=== PATIENT | male | born 1975 | race Caucasian/White ===

== ENCOUNTER → 2024-05-06 12:47 | Outpatient (BNVA) | payer SELFPAY | PROVIDERS: Visit Provider Physician Assistant Medical ==

== ENCOUNTER 2025-05-09 08:17 | Outpatient (AMB) | payer BC, SELFPAY ==
--- NOTE | 2025-05-09 08:18 | MHC.OFFVIS ---
Intake Visit Reasons: 2 Month F/U Allergies No Known Allergies Allergy (Verified 05/03/25 12:16) Medication List - Last Reconciled 05/09/25 by Caesar Li MD insulin glargine U-300 conc (Benignoulisbeth SoloStar U-300 Insulin) 34 units subcut DAILY tizanidine 2 mg PO BEDTIME PRN 90 days topiramate 25 mg PO BID HPI Comments Details: 50 yo RH man with headaches. His problems started around 2021 when he started having headaches. In Oct, he developed a severe headache and had a CT brain done at [facility], which revealed a large right CP angle mass, a meningioma, causing mass effects to brainstem. He had surgical decompression in December in [facility]. His headaches disappeared after surgery but he developed CSF leak causing constant runny nose. This was treated another surgery in March of 2024. Apparently, he has gamma knife treatment as it was not completely removed. He said that pathology was benign. He was getting headache in the back of head, on both sides, a few times a day. He was going to have another MRI and has a follow up in [place] with his neurosurgeon. Ibuprufen was only thing that was helping. [facility] Medical History (Updated 05/09/25 @ 08:24 by Caesar Li MD) Meningioma Review of Systems Const Details: c/o Daily headaches Physical Exam Neuro Other: Mental Status: Alert and oriented to person, place, and time. Normal attention. Normal spontaneous speech, fluency, and comprehension. No obvious issues with mood and memory. Affect is appropriate. Cranial Nerves: CN II: Visual wiseman full to confrontation, visual acuity intact. CN III, IV, : Pupils equal, round, reactive to light and accommodation. Extraocular movements are normal. CN V: Facial sensation is normal. CN VII: Facial movements symmetrical. CN VIII: Hearing intact to bedside conversation is normal. CN IX, X: Palate elevates symmetrically. CN XI: Shoulder shrug and head turn symmetrical. CN XII: Tongue midline without atrophy or fasciculations. Motor: Bulk and tone normal in all extremities. No significant muscle weakness in arms and legs. No drift. Reflexes: Deep tendon reflexes 2+ and symmetric. Plantar response down-going bilaterally. Coordination: Cifxzl-im-ssie and qpwg-ap-fkwc testing normal. No dysmetria. Gait and Station: No obvious gait abnormality. No ataxia or instability. Extrapyramidal: Full facial expressions and blinking. No rigidity. Movements are appropriate with no tremor or abnormality. Speech: Normal; no dysarthria or tremor. Assessment & Plan Assessment & Plan (1) Chronic daily headache: Comment: Meds tried: Motrin, amitriptyline, gabapentin, tramadol, duloxetine CT brain WO at [facility] in Oct 2023: Large right CP angle mass with mass effect MRI brain WWO at [facility] in Oct 2023: Same lesion with enhancement Code(s): R51.9 - Headache, unspecified Category: Medical (2) Occipital neuralgia: Code(s): M54.81 - Occipital neuralgia Category: Medical Qualifiers: Laterality: bilateral Qualified Code(s): M54.81 - Occipital neuralgia Plan Impression: 50 years old man with chronic daily headache with features of occipital neuralgia. He has been using ibuprofen on regular basis, which is not a good option for him because of him being diabetic. In addition, regular use of ibuprofen can result in analgesic rebound headaches and he was educated about that. He had a right cerebellopontine angle mass, probably meningioma, resected in 2023. After that he developed a CSF leak which was treated with gamma knife. He said that sense that treatment, he was having these headaches. He was going to have another MRI of brain and has another appointment with his neurosurgeon in July. In the meantime he was educated about occipital neuralgia in its proper treatment. It response best to nerve block type of treatment. Rec: a. Topiramate 25mg bid b. Minimize use of Ibuprufen c. Consider injection treatment for occipital neuralgia Coding Level of Care Code Est Pt Level 5 (82745) Diagnoses Chronic daily headache R51.9 Bilateral occipital neuralgia M54.81 Laterality: bilateral
--- OUTSIDE RECORDS SUMMARY | 2025-05-09 08:35 | XMS_ITS | Clinical Summary ---
Author Organization [facility] Address [address] [facility] Tiffany And[address] [place] [address] Care Team Providers Care Php Consultant Name Role Phone Randell Gasca MD Primary Care Provider [phone] Allergies Active Allergy Reactions Criticality Noted Date Comments Gabapentin Angioedema High 08/17/2024 Medications atorvastatin (Lipitor) 20 mg tablet Take 20 mg by mouth at bedtime. 4 Active Semglee,insuli n glarg-yfgn,Pen 100 unit/mL (3 mL) insulin pen Inject 34 Units under the skin in the evening. 4 Active Trulicity 4.5 mg/0.5 mL pen injector Inject 0.25 mg under the skin 1 (one) time per week. On Saturdays AM 4 Active metFORMIN (Glucophage) 1,000 mg tablet Take 1,000 mg by mouth with breakfast and with evening meal. Do not crush, chew, or split. Active multivitamin with folic acid 400 mcg tablet tablet Take 1 tablet by mouth once daily. Active acetaminophen (Tylenol) 325 mg tabletIndicati ons:Cerebral meningioma (Multi-HCC) Take 2 tablets (650 mg) by mouth every 6 (six) hours as needed for pain 30 tablet 01/02/2024 9:10 AM EDT 4 Active lisinopril 10 mg tablet Take 10 mg by mouth once daily. Active omega-3 (Fish Oil) 300-1,000 mg capsule Take 1,000 mg by mouth once daily. Active zinc gluconate 50 mg tablet Take 50 mg by mouth once daily. Active diclofenac (Voltaren) 75 mg EC tablet Take 75 mg by mouth twice daily. Do not crush, chew, or split. Active FreeStyle glucose monitoring kit Test blood sugar 2 times daily 9 Active Dexcom G4 [place] office rental clerk (Dexcom G7 Well Cleaner) misc 1 Device by Does not apply route See Admin Instructions. Use daily with dexcom g 7 sensors 3 Active Dexcom G7 Sensor device See administration instructions. Change Sensor every 10 days Active ibuprofen 800 mg tablet Take 800 mg by mouth every 8 (eight) hours if needed. 4 Active Autolet lancing device Test blood sugar 2 times daily 3 Active pen needle, diabetic 32 gauge x /32 needle Use one daily with insulin. 4 Active gabapentin (Neurontin) 300 mg capsuleIndicat ions:Cerebral meningioma (Multi-HCC) Take 1 tablet twice a day for one week then increase to 1 tablet three times a day 90 capsule 1 4 Active amitriptyline (Elavil) 10 mg tabletIndicati ons:Meningioma (Multi-HCC) Take 3 tablets (30 mg) by mouth at bedtime. 90 tablet 5 Active amoxicillin (Amoxil) 250 mg capsule Take 250 mg by mouth every 8 (eight) hours. 4 Active DULoxetine (Cymbalta) [address] capsule Take 20 mg by mouth in the morning. 4 025 Active Toulisbeth SolRosa Mar U-300 Insulin 300 unit/mL (1.5 mL) injection Inject 34 Units under the skin once daily. Active tiZANidine (Zanaflex) 4 mg tablet Take 4 mg by mouth if needed at bedtime. Active topiramate (Topamax) 25 mg tablet Take 25 mg by mouth once daily. 5 Active traMADol (Ultram) 50 mg tablet Take 50 mg by mouth every 6 (six) hours if needed. 5 Active Active Problems Problem Noted Date Diagnosed Date Cerebrospinal fluid leak 03/24/2024 Benign neoplasm of meninges, unspecified (Multi- HCC) 03/03/2024 Conductive hearing loss of r ight ear with unrestricted hearing of left ear 03/01/2024 Fluid level behind tympanic membrane of right ea r 03/01/2024 Postoperative cerebrospinal fluid leak Hyperlipidemia 12/17/2023 Hypertension 12/17/2023 Cerebral meningioma (Multi-HCC) 12/02/2023 Overview (12/02/2023): Right petroclival tentorial with brainstem compression Diabetes mellitus (Multi-HCC) Encounters Date Type Department Care Team Description 05/02/2025 10:45 AM EDT Office Visit [facility] Otolaryngology [address] [place] [address], [address] [place] [address] Olga Castillo MD Cerebral meningioma (Primary Dx); Postoperative cerebrospinal fluid leak; Sensorineural hearing loss (SNHL), bilateral; Pulsatile tinnitus 05/02/2025 10:00 AM EDT Clinical Support [facility] Department of Audiology [address] [place] [address], [place] [address] Serena Cook AUD Abnormal auditory perception, bilateral (Primary Dx) 05/02/2025 Travel from Last 3 Months Family History Medical History Relation Name Comments Alzheimer's disease Father Kenrickkiara Alcantara Dementia Father Kenrick Alcantara Diabetes Father Kenrick Quinton Diabetes Mother Alycia Harris Relation Name Status Comments Father Kenrick Alcantara Mother Alycia Harris Alive Social History Tobacco Use Types Packs/Day Years Used Date Smoking Tobacco: Former Cigarettes 1.5 4 0 09/29/1993 - 09/29/1997 Smokeless Tobacco: Never Tobacco Cessation:Counseling Given: Not Answered Alcohol Use Standard Drinks/Week Comments Yes 1 (1 standard drink = 0.6 oz pure alcohol) very occasionally; no drinks in 1 month AUDIT-C Answer Date Recorded Q1: How often do you have a drink containing alc ohol? Monthly or less 03/24/2024 Q2: How many drinks containi ng alcohol do you have on a typical day when you are drinking? 1 or 2 03/24/2024 Q3: How often do you have si x or more drinks on one occasion? Never 03/24/2024 Overall Financial Resource Strain (CARDIA) Answe r Date Recorded How hard is it for you to pa y for the very basics like food, housing, medical care, and heating? Not hard at all 03/24/2024 Hunger Vital Sign Answer Date Recorded Within the past 12 months, y ou worried that your food would run out before you got the money to buy more. Never true 03/24/20 24 Ran Out of Food in the Last Year Not on file 03/24/2024 PRAPARE - Transportation Answer Date Re corded In the past 12 months, has l ack of transportation kept you from medical appointments or from getting medications? No 02/28 In the past 12 months, has l ack of transportation kept you from meetings, work, or from getting things needed for daily living? No 03/24/2024 Housing Stability Vital Sign Answer Zane e Recorded Unable to Pay for Housing in the Last Year Not o n file 03/24/2024 Number of Places Lived in the Last Year Not on f ile 03/24/2024 In the last 12 months, was t here a time when you did not have a steady place to sleep or slept in a penitentiary (including now)? No 03/24/2024 Sex and Gender Information Value Date Recorded Sex Assigned at Male 12/31/2023 11:24 PM EDT Legal Sex Male 9:57 AM EST Gender Identity Male 12/31/2023 11:24 PM EDT Sexual Orientation Straight 12/31/2023 11 :24 PM EDT Last Filed Vital Signs Vital Sign Reading Time Taken Comments Blood Pressure 186/89 08/16/2024 8:49 AM EST Pulse 71 08/16/2024 8:49 AM EST Temperature 36.8 C (98.2 F) 05/28/2024 11:40 AM EDT Respiratory Rate 16 05/28/2024 11:40 AM EDT Oxygen Saturation 99% 05/28/2024 11:40 AM EDT Inhaled Oxygen Concentration - - Weight 96.9 kg (213 lb 9.6 oz) 08/16/2024 8:49 A M EST Height 160 cm (5' 2.99 ) 04/26/2024 8:33 AM EDT Body Mass Index 37.85 04/26/2024 8:33 AM EDT Plan of Treatment Upcoming Encounters Date Type Department Care Team (Late st Contact Info) Description 07/16/2025 7:30 AM EDT Appointment [facility] Imaging [address] [place] [address] 07/16/2025 7:45 AM EDT Appointment [facility] [address] [place] [address] 07/16/2025 8:00 AM EDT Appointment [facility] [address] [place] [address] 08/15/2025 9:00 AM EST Office Visit [facility] Neurosurgery [address] [facility] [address] [place] [id number] Yahir York MD [address] [place] [address] Health Maintenance Due Date Last Done Comments CT Colonography 1975 Colonoscopy 1975 Colorectal Cancer Screening 1975 FIT-DNA 1975 FIT 1975 FOBT 1975 HIV Screening 1975 High Risk LDL 1975 Lipid Panel 1975 Sigmoidoscopy 1975 MMR Vaccines (1 of 1 - Standard series) 01/11/1976 Diabetes: Foot Exam 1985 Diabetes: Retinopathy Screening 1985 Hepatitis C Screening 1993 Hepatitis B Vaccines (1 of 3 - 19+ 3-dose series) 1994 Zoster Vaccines (1 of 2) 1994 Pneumococcal Vaccine: 50+ Years (2 of 2 - PCV) 03/18/2020 03/18/2019 COVID-19 Vaccine (3 - Pfizer risk series) 11/18/2021 10/21/2021, 09/30/2021 Depression Screening 09/29/2024 Diabetes: Urine Protein Screening 12/18/2024 12/19/2023 Diabetes: Hemoglobin A1C 02/07/2025 024, 08/10/2024, 04/15/2024, Additional history exists Influenza Vaccine (#1) 2025 DTaP/Tdap/Td Vaccines (2 - Td or Tdap) 04/13/2031 04/13/2021 HIB Vaccines Aged Out No longer eligi ble based on patient's age to complete this topic HPV Vaccines Aged Out No longer eligi ble based on patient's age to complete this topic Hepatitis A Vaccines Aged Out No long er eligible based on patient's age to complete this topic IPV Vaccines Aged Out No longer eligi ble based on patient's age to complete this topic Meningococcal B Vaccine Aged Out No l onger eligible based on patient's age to complete this topic Meningococcal Vaccine Aged Out No chino primo eligible based on patient's age to complete this topic Rotavirus Vaccines Aged Out No longer eligible based on patient's age to complete this topic Medical Devices Implanted Type Area Pharmaceutical Compounding Supervisor Device Identifier Shelf Expiration Date Model / Serial / Lot Substitute Bone Hydroset 5cc - [id number] Implanted:Qty: 1 on 12/31/2023 at [facility] Bone Right: Cranial [employer] 09/13/2025 [id number] / / [id number] Substitute Bone Hydroset 3cc - [id number] Implanted:Qty: 1 on 03/24/2024 at [facility] Bone N/A: Cranial [employer] 07/30/2025 [id number] / / [id number] Substitute Bone Hydroset 5cc - [id number] Implanted:Qty: 1 on 03/24/2024 at [facility] Bone N/A: Cranial [employer]INA [employer] 12/21/2025 [id number] / / [id number] Graft Alloderm 3x7 Med 1.2-2.0 - [id number] Implanted:Qty: 1 on 03/24/2024 at [facility] Graft N/A: Cranial LIFECELL/ALLERGA N 10/29/2025 [id number] / / [id number] Implant Implant Left: Arm Plate Lo Pro 3d Box 8x4aavc Lg - [id number] Implanted:Qty: 2 on 12/31/2023 by Yahir York MD at [facility] Plate Right: Cranial [employer] [id number] / / Procedures Procedure Name Priority Date/Time Associated Diagnosis Comments AUDITORY FUNCTION TESTS Routine 05/02/2025 10:37 AM EDT Abnormal auditory perception, bilateral HEMOGLOBIN A1C STAT 01/01/2024 11:38 AM EDT from Last 3 Months or Most Recently Relevant to Health Maintenance Results * Auditory function tests (05/02/2025 10:37 AM EDT) Narrative Serena Cook AUD - 05/02/2025 10:37 AM EDT Images from the original result were not included. See progress note for result and report. Perla Chan , [facility] Trailer Steerer us Se[facility] ORDERABLES Final Result * (ABNORMAL) Hemoglobin A1c (01/01/2024 11:38 AM EDT) HEMOGLOBIN A1C % (INT/EXT) 7.6(H) <5.6 % 01/01/2024 12:08 PM EDT [facility] Comment: Non-diabetic: < 6.0 % Diabetic: Goal: < 7.0% Action suggested: > 8.0% Blood Venous blood specimen / Unknown Venipuncture / Unknown 01/01/2024 11:38 AM EDT 01/01/2024 11:42 AM EDT us [facility] BLOOD ORDERABLES Final R esult [facility] [address] [place] [address], from Last 3 Months or Most Recently Relevant to Health Maintenance [place] [address] [place] [address] PPO Advance Directives Documents on File Type Date Recorded 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 Civil Project Engineer Expl anation Health Care Proxy 12/31/2023 Carey KamJosiloren Er ic * Full Code (Latest Code Status on File) Date Activated Date Inactivated Comments 03/24/2024 12:14 PM * Full Code Date Activated Date Inactivated Comments 03/24/2024 5:57 AM 03/24/2024 12:14 PM * Full Code Date Activated Date Inactivated Comments 12/31/2023 7:24 PM 01/02/2024 12:31 PM * Full Code Date Activated Date Inactivated Comments 12/31/2023 6:07 AM 12/31/2023 7:24 PM Healthcare Agents on File Name Relationship Healthcare Agent Relationship Communication Carey Dickerson Significant Other Health Care Agent Quinton Solo Brother First Alternate Health Care Agent Care Teams Php Consultant Relationship Specialty Start Date End Date Randell Gasca MD PCP - General Microfilm Clerk 11/27/23
--- OUTSIDE RECORDS SUMMARY | 2025-05-09 08:35 | XMS_ITS | Clinical Summary ---
Author Organization [facility] Address [address] [place] [address] Care Team Providers Care Supervisor [place]ond Name Role Phone Francisco Reno MD Primary Care Provider [phone] Social History Tobacco Use Types Packs/Day Years Used Date Smoking Tobacco: Never Assessed Sex and Gender Information Value Date Recorded Sex Assigned at Not on file Gender Identity Not on file Sexual Orientation Not on file Job Start Date Occupation Industry Not on file Not on file Not on file Plan of Treatment Health Maintenance Due Date Last Done Comments Hepatitis B Vaccines (1 of 3 - 3-dose series) 1975 Hepatitis C Screening 1975 Depression Screening 1987 Preventative Health Evaluation 1993 Colon Cancer Screening (Colonoscopy) 01/11/2020 COVID-19 Vaccine (3 2023-2 5 season) 2024 10/21/2021, 09/30/2021 Shingrix-Zoster Vaccine (1 o f 2) 2025 Influenza Vaccine (#1) 2025 DTap / Tdap / Td (2 - Td or Tdap) 04/13/2031 04/13/2021 Pneumococcal Vaccine Aged Out 03/18/2019 No long er eligible based on patient's age to complete this topic RSV Ped < 20 months Aged Out No longe r eligible based on patient's age to complete this topic Care Teams Supervisor [place] Relationship Specialty Start Date End Date Francisco Reno MD [address] [place] [id number] PCP - General Emergency Medicine 04/06/19
--- OUTSIDE RECORDS SUMMARY | 2025-05-09 08:35 | XMS_ITS | Clinical Summary ---
Author Organization [facility] Address [address] [place] [address] Care Team Providers Care Can Cleaner Name Role Phone Unavailable Primary Care Provider Unavailabl e Immunizations Immunization Administration Dates Next Due COVID-19, mRNA (Pfizer Pre F all 2022) Monovalent, 30 mcg/0.3 ml 10/21/2021,09/30/2021 PPV23 (Pneumovax) 03/18/2019 Tdap 04/13/2021 Social History Tobacco Use Types Packs/Day Years Used Date Smoking Tobacco: Never Assessed Sex and Gender Information Value Date Recorded Sex Assigned at Not on file Legal Sex Male 11:21 AM EDT Gender Identity Not on file Sexual Orientation Not on file Plan of Treatment Health Maintenance Due Date Last Done Comments Hepatitis C Screening 1975 Hep B (1 of 3 - 19+ 3-dose series) 1994 COVID-19 Vaccine ( - 2023-2 5 season) 2024 10/21/2021, 09/30/2021 Pneumococcal 50+ years (2 of 2 - PCV) 2025 03/18/2019 Zoster (Shingrix) (1 of 2) 2025 Influenza (#1) 2025 DTaP/Tdap/Td (2 - Td or Tdap) 04/13/2031 04/13/2021 HPV Vaccine (No Doses Required) Completed Hep A Aged Out No longer eligi ble based on patient's age to complete this topic Hib Aged Out No longer eligi ble based on patient's age to complete this topic Meningococcal ACWY Aged Out No longer eligible based on patient's age to complete this topic
--- OUTSIDE RECORDS SUMMARY | 2025-05-09 08:35 | XMS_ITS | Clinical Summary ---
Author Organization [facility] [address] [facility] Address [address] [place] [phone] Phone Care Team Providers Care [employer] Sil[employer] Name Role Phone Randell Gasca MD Primary Care Provider [phone] Allergies Active Allergy Reactions Criticality Noted Date Comments Gabapentin Angioedema High 08/17/2024 Medications blood-glucose meter kit Use to check blood sugar twice daily 02/24/20 19 Active blood-glucose meter,continuous (Dexcom G7 Furnace Repairer Helper) misc 1 Device by Does not apply route See Admin Instructions. Use daily with dexcom g 7 sensors 03/21/20 23 Active diclofenac (VOLTAREN) 75 mg EC tablet TAKE 1 TABLET BY MOUTH TWICE DAILY Active glucose blood test strip Apply 1 Strip topically 2 times daily. 11/29/19 17 Active Autolet lancing device Use to check blood sugar twice daily 12/10/19 23 Active ONETOUCH ULTRASOFT LANCETS MISC Use twice daily to test blood sugar. 12/10/19 23 Active DULoxetine (Cymbalta) [address] capsule Take 1 capsule (20 mg total) by mouth 1 (one) time each day. Do not crush or chew. 30 each 09/10/20 24 025 Active metFORMIN (GLUCOPHAGE) 1,000 mg tablet TAKE 1 TABLET BY MOUTH TWICE DAILY WITH MEALS 90 tablet 1 10/05/19 25 Active tiZANidine (ZANAFLEX) 4 mg tablet TAKE 1 TABLET BY MOUTH EVERY 8 HOURS NEEDED FOR MUSCLE SPASMS 90 tablet 5 15/20 25 Active traMADoL (ULTRAM) 50 mg tablet Take 1 tablet (50 mg total) by mouth every 6 (six) hours if needed for moderate pain. Max Daily Amount: 200 mg 84 tablet 10/14/19 25 Active acetaminophen (TYLENOL) 325 mg tablet Take 2 tablets (650 mg total) by mouth every 6 hours as needed. 01/02/20 24 Active amitriptyline (ELAVIL) 10 mg tablet Take 3 tablets (30 mg total) by mouth at bedtime. 10/25/19 25 Active lisinopriL (PRINIVIL,ZESTRIL ) 30 mg tablet Take 1 tablet (30 mg total) by mouth 1 (one) time each day. 30 each 10/28/19 25 026 Active insulin glargine U-300 (Toujeo SoloStar U-300 Insulin) 300 unit/mL (1.5 mL) CONCENTRATED injection penIndications:Di abetes mellitus without complication ([facility] V24, [facility] V28) Inject 34 units SC once a day 45 mL 12/10/19 25 Active blood-glucose sensor ([employer] G7 Sensor) deviceIndications :Diabetes mellitus without complication ([facility] V24, [facility] V28) Inject 1 EA into the skin See administration instructions. Change sensor every 10 days, used to test blood sugar.E11.9 9 each 12/10/19 25 Active dulaglutide (TRULICITY) 0.75 mg/0.5 mL pen injector injectionIndicati ons:Diabetes mellitus without complication ([facility] V24, [facility] V28) Inject 0.5 mL (0.75 mg total) under the skin every 7 (seven) days. Inject 0.75 mg into the skin every 7 days. - Subcutaneous 6 mL 12/10/19 25 Active BD Brittanie 2nd Gen Pen Needle 32 gauge x 32 needleIndications :DM (diabetes mellitus), type 2 with peripheral vascular complications ([facility] V24, [facility] V28) USE TO ADMINISTER INSULIN UNDER THE SKIN ONCE A DAY DIRECTED 100 each 03/21/20 25 Active Active Problems Problem Noted Date Diagnosed Date Primary hypertension 10/28/2024 Morbid obesity with BMI of 4 0.0-44.9, adult ([facility] V24, [facility] V28) 07/05/2024 Brain mass 12/03/2023 Overview (07/05/2024): Seen in the office for acute onset severe headache for 1 day. Was sent to the ER. Had CTA showing extra-axial mass arising from the anteromedial inferior tentorium with mass effect on the criselda and midbrain. MRI showed a mass c/w meningioma. Neurosurgery consultation in process. COVID-19 11/05/2022 DM (diabetes mellitus), type 2 with peripheral vascular complications ([facility] V24, [facility] V28) 07/27/2021 Erectile dysfunction 07/27/2021 Hyperlipidemia 07/27/2021 Diabetes mellitus type 2, un complicated ([facility] V24, [facility] V28) 11/28/2016 Chronic rhinitis 10/15/2016 Eczema 10/15/2016 TARIQ (obstructive sleep apnea) 11/07/2015 Overview (07/05/2024): CPAP Immunizations Name Administration Dates Next Due Pfizer SARS-CoV-2 COVID-19, mRNA, LNP-S, preservative free 10/21/2021,09/30/2021 Pneumococcal polysaccharide 23 valent (Pneumovax 23) 2yo and older 03/18/2019 Tdap Tetanus diptheria acell ular pertussis (Boostrix; Adacel) 7yo and older 04/13/2021 Surgical History Surgery Date Site/Laterality Comments OTHER SURGICAL HISTORY PROCEDURE: DENIES PREVIOUS SURGERY BRAIN SURGERY Medical History Medical History Date Comments Diabetes mellitus type 2, uncomplicated ([facility] V24, [facility] V28) 11/28/2016 DX:Diabetes mellitus type 2, uncomplicated (HCC) TARIQ (obstructive sleep apnea) 11/07/2015 DX :TARIQ (obstructive sleep apnea); COMMENT: CPAP Chronic rhinitis 10/15/2016 DX:Chronic rhin itis Morbid obesity with BMI of 4 0.0-44.9, adult ([facility] V24, [facility] V28) 02/13/2017 DX:Morbid obesity wit h BMI of 40.0-44.9, adult (HCC) Eczema 10/15/2016 DX:Eczema Family History Medical History Relation Name Comments Diabetes Father Hypertension, C ataract, Glaucoma Diabetes Mother Hypertension Relation Name Status Comments Father Mother Social History Tobacco Use Types Packs/Day Years Used Date Smoking Tobacco: Former Cigarettes S tarted: 12/12/1996 Smokeless Tobacco: Never Tobacco Cessation:Counseling Given: Not Answered Alcohol Use Standard Drinks/Week Comments Yes 0 (1 standard drink = 0.6 oz pur e alcohol) Housing Instability Answer Date Recorde d Are you worried that in the next 2 months you may not have stable housing? Yes 09/03/2024 Food Access & Nutrition Answer Date Rec orded Do you have access to a vari ety of food including fruits and vegetables? Yes 09/03/2024 Access to Healthcare Answer Date Record ed Within the last 3 months, ho w many times did you visit the emergency department for your medical care? 1 09/03/2024 Health Literacy Answer Date Recorded How often do you need to hav e someone help you when you read instructions, pamphlets, or other written material from your doctor or pharmacy? Sometimes 09/03/2024 Caregiver: How often do you need to have someone help you when you read instructions, pamphlets, or other written material from your doctor or pharmacy? Not on file 09/03/2024 Financial Risk Answer Date Recorded How hard is it for you to pa y for the very basics like food, housing, medical care, and air conditioning / heating? Somewhat hard 09/03/2024 Transportation Answer Date Recorded Has the lack of transportati on kept you from meetings, work, or from getting things needed for daily living? No Has the lack of transportati on kept you from medical appointments or from getting medications? No 09/03/2024 Social Isolation Answer Date Recorded How often do you feel lonely or isolated from th ose around you? Rarely 09/03/2024 Food Risk Answer Date Recorded Within the past 12 months we worried whether our food would run out before we got money to buy more. Never true 09/03/2024 Within the past 12 months th e food we bought just didn't last and we didn't have money to get more. Never true 09/03/2024 Dependent Care Answer Date Recorded Do you need help finding or paying for care for your loved ones. For example, housekeeper child care or elderly care for an older adult? No 09/03/2024 Education Answer Date Recorded Do you think completing more education or training, like finishing a GED, going to college, or learning a trade, would be helpful for you? No 09/03/2024 Employment and Income Answer Date Recor ded During the last four weeks, have you been actively looking for work? No 09/03/2024 Living Situation Answer Date Recorded What is your living situation? 1 11/04/2023 Sex and Gender Information Value Date Recorded Sex Assigned at Male 08/10/2024 5:22 PM EST Legal Sex Male 5:45 AM EST Gender Identity Male 08/10/2024 5:22 PM EST Sexual Orientation Straight 08/10/2024 5: 22 PM EST Obstetrics History Last Filed Vital Signs Vital Sign Reading Time Taken Comments Blood Pressure 158/104 10/28/2024 3:41 PM EST Pulse 87 10/28/2024 3:38 PM EST Temperature 36.1 C (97 F) 10/28/2024 3:38 PM EST Respiratory Rate 18 09/01/2024 10:30 AM EST Oxygen Saturation 99% 10/28/2024 3:38 PM EST Inhaled Oxygen Concentration - - Weight 95.7 kg (211 lb) 10/28/2024 3:38 PM EST Height 160 cm (5' 3 ) 10/28/2024 3:38 PM EST Body Mass Index 37.38 10/28/2024 3:38 PM EST Plan of Treatment Health Maintenance Due Date Last Done Comments Diabetes: Annual Retina Eye Exam 1985 Hepatitis B Vaccines (1 of 3 - 19+ 3-dose series) 1994 Pneumococcal Vaccine: 50+ Years (2 of 2 - PCV) 03/18/2020 03/18/2019 Colorectal Cancer Screening: Colonoscopy 09/01/2022 HIV Screening 09/01/2022 Hepatitis C Screening 09/01/2022 COVID-19 Vaccine ( season) 2024 10/21/2021, 09/30/2021 Depression Screening 09/29/2024 09/03/2024, 11/24/19 24 Diabetes: Annual Foot Exam 10/31/2024 10/31/2023 Zoster Vaccines (1 of 2) 2025 Diabetes: Blood Sugar Control Test (HGBA1C) 02/07/2025 08/10/2024, 04/15/2024, 04/15/2024, Additional history exists Diabetes: Annual Urine Albumin-Creatinine Ratio (uACR) 04/15/2025 04/15/2024 Influenza Vaccine (#1) 2025 Diabetes: Annual GFR (Glomerular Filtration Rate) 09/01/2025 09/01/2024, 04/15/2024, 04/15/2024 Hypertension/CHF/CAD Annual BMP Blood Test 09/01/2025 09/01/2024, 04/15/2024, 04/15/2024 Social Influencers of Health Screening 09/03/2025 09/03/2024 Cholesterol Screening (Lipid Panel) 04/15/2029 04/15/2024, 04/15/2024 DTaP,Tdap,and Td Vaccines (2 - Td or Tdap) 04/13/2031 [...] on patient's age to complete this topic MMR Vaccines Aged Out No longer eligi ble based on patient's age to complete this topic Meningococcal ACWY Vaccine Aged Out N o longer eligible based on patient's age to complete this topic Meningococcal B Vaccine Aged Out No l onger eligible based on patient's age to complete this topic RSV Immunization Patients Under 20 months Aged Out No longer eligible based on patient's age to complete this topic Varicella Vaccines Aged Out No longer eligible based on patient's age to complete this topic Procedures Procedure Name Priority Date/Time Associated Diagnosis Comments COMPREHENSIVE METABOLIC PANEL STAT 09/01/2024 10:53 AM EST HEMOGLOBIN A1C Routine 08/10/2024 10:26 AM EST Type 2 diabetes mellitus without complication, unspecified whether 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 insulin 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 ([facility] V24, [facility] V28) URINE ALBUMIN CREATININE RATIO Routine 04/15/2024 LIPID PANEL Routine 04/15/2024 DEPRESSION SCREENING Routine 11/24/2023 DIABETES FOOT EXAM Routine 10/31/2023 from Last 3 Months or Most Recently Relevant to Health Maintenance Results * (ABNORMAL) Comprehensive metabolic panel (09/01/2024 10:53 AM EST) Sodium 136 133 - 145 mmol/L LAB CHEMISTRY METHOD 09/01/2024 11:29 AM [facility] Potassium 4.0 3.5 - 5.5 mmol/L LAB CHEMISTRY METHOD 09/01/2024 11:29 AM [facility] Chloride 103 96 - 110 mmol/L LAB CHEMISTRY METHOD 09/01/2024 11:29 AM [facility] CO2 28 21 - 32 mmol/L LAB CHEMISTRY METHOD 09/01/2024 11:29 AM [facility] Anion Gap 5 3 - 11 LAB CHEMISTRY METHOD 09/01/2024 11:29 AM [facility] Glucose 139(H) 70 - 100 mg/dL LAB CHEMISTRY METHOD 09/01/2024 11:29 AM [facility] BUN 6 5 - 25 mg/dL LAB CHEMISTRY METHOD 09/01/2024 11:29 AM [facility] Creatinine 0.78 0.70 - 1.30 mg/dL LAB CHEMISTRY METHOD 09/01/2024 11:29 AM [facility] eGFR 109 >=60 mL/min/1. 73m2 LAB CHEMISTRY METHOD 09/01/2024 11:29 AM [facility] Comment:Calculation based on the Chronic Kidney Disease Epidemiology Collaboration (CKD-EPI) equation refit without adjustment for race. BUN/Creatinine Ratio 7.7 LAB CHEMISTRY METHOD 09/01/2024 11:29 AM [facility] Calcium 9.2 8.5 - 10.5 mg/dL LAB CHEMISTRY METHOD 09/01/2024 11:29 AM [facility] AST (SGOT) 9(L) 10 - 42 unit/L LAB CHEMISTRY METHOD 09/01/2024 11:29 AM [facility] ALT (SGPT) 22 10 - 60 unit/L LAB CHEMISTRY METHOD 09/01/2024 11:29 AM [facility] Alkaline Phosphatase 70 42 - 121 unit/L LAB CHEMISTRY METHOD 09/01/2024 11:29 AM [facility] Total Protein 6.5 6.0 - 8.0 g/dL LAB CHEMISTRY METHOD 09/01/2024 11:29 AM [facility] Albumin 3.7 3.2 - 5.0 g/dL LAB CHEMISTRY METHOD 09/01/2024 11:29 AM [facility] Total Bilirubin 0.5 0.0 - 1.4 mg/dL LAB CHEMISTRY METHOD 09/01/2024 11:29 AM [facility] Blood Venous blood specimen / Unknown Venipuncture / Unknown 09/01/2024 10:53 AM EST 09/01/2024 11:29 AM EST us James Price MD LAB BLOOD ORDERABLES Final Resu lt [facility] [address] [place] [address], * Hemoglobin A1c (08/10/2024 10:26 AM EST) Hemoglobin A1C 6.1 <6.5 % LAB CHEMISTRY METHOD 08/10/2024 1:42 PM EST [facility] Mean Bld Glu Estim. 128 mg/dL LAB CHEMISTRY METHOD 08/10/2024 1:42 PM EST [facility] Blood Venous blood specimen / Unknown Venipuncture / Unknown 08/10/2024 10:26 AM EST 08/10/2024 10:26 AM EST us Debra KEYES LAB BLOOD ORDERABLES Final Result [facility] [address] [place] [address], [place] [phone] * Urine Albumin Creatinine Ratio (04/15/2024) [facility] Urine Albumin Creatinine Ratio Abstracted [facility] Provider HEALTH MAINTENANCE Final Result * (ABNORMAL) Lipid panel (04/15/2024) [facility] LDL/HDL Ratio 5(A) 0 - 4 Triglycerides 274(A) 0 - 150 mg/dL Cholesterol 228(A) 0 - 200 mg/dL HDL 50 >=40 mg/dL LDL Cholesterol 124(A) 0 - 100 mg/dL Blood Venous blood specimen / Unknown [facility] Provider LAB BLOOD ORDERABLES Barb l Result * Depression Screening (11/24/2023) [facility] Depression Screening Abstracted Historical Provider HEALTH MAINTENANCE Final Result * Diabetes Foot Exam (10/31/2023) [facility] Diabetes: Annual Foot Exam Abstracted [facility] Provider HEALTH MAINTENANCE Final Result from Last 3 Months or Most Recently Relevant to Health Maintenance Insurance [facility] Care Teams [employer] Relationship Specialty Start Date End Date Randell Gasca MD [address] [place] [id number] PCP - General Internal Medicine 08/23/24
--- OUTSIDE RECORDS SUMMARY | 2025-05-09 08:35 | XMS_ITS ---
Continuity of Care Document (CCD) Created on: May 09, 2025 Gene Mo External Reference #: [id number] : [id number] Sex: Male Author Organization [facility] Address [address] [facility] [address] [place] [address] Phone [phone] Social History Type Date Description Comments Sex Male Sex Unknown Medical Devices Description No Information Available Encounters Description No Information Available Assessments Description No Information Available Plan of Treatment No Information Available Functional Status Description No Information Available Mental Status Description No Information Available Referrals Description No Information Available
== END 2025-05-09 08:51 | disposition home or self-care (01) ==
LOC: HO.HSM 08:18
PROVIDERS: PCP Internal Medicine; Referring Provider Internal Medicine; Visit Provider Psychiatry & Neurology Neurology
DX: R51.9 Headache, unspecified (principal); M54.81 Occipital neuralgia
CPT/HCPCS: 99214